=== PATIENT | female | born 1965 | race Asian ===

== ENCOUNTER 2016-06-05 14:03 | Emergency (ER) | payer OTHER ==
[2016-06-05] MEDS ORDERED: ONDANSETRON ODT 4 MG TABLET TL STA (16:40)
[2016-06-05] MEDS ORDERED: DIPHENOX/ATROPINE 2.5/0.025 MG TABLET PO STA (16:40)
[2016-06-05] MEDS ORDERED: ACETAMINOPHEN 325 MG TABLET PO STA (16:40)
[2016-06-05] MEDS ORDERED: ACETAMINOPHEN 325 MG TABLET PO ONE (16:45)
[2016-06-05] MEDS ORDERED: ONDANSETRON ODT 4 MG TABLET ONE (16:46)
[2016-06-05] MEDS ORDERED: DIPHENOX/ATROPINE 2.5/0.025 MG TABLET PO ONE (16:46)
== END 2016-06-05 16:58 | disposition home or self-care (01) ==
DX: R11.2 Nausea with vomiting, unspecified (principal); A09 Infectious gastroenteritis and colitis, unspecified; R10.84 Generalized abdominal pain
CPT/HCPCS: 99282; 99283; A9270; Q0162

== ENCOUNTER 2017-12-18 19:44 | Emergency (ER) | payer OTHER ==
--- NOTE | 2017-12-18 21:39 | ED Physician Documentation ---
PD HPI HEADACHE - Stated complaint Stated Complaint: YAN - Chief complaint Chief Complaint: Neuro - History obtained from History obtained from: Patient - History of Present Illness Timing - onset: How many days ago (5) Timing - duration: Days Timing - details: Gradual onset, Still present, Constant, Waxing and waning Pain level now: 8 Worst headache ever?: No: Worst headache ever? Location: Front, Back, Right, Left, Other (bifrontal and bioccipital) Quality: Throbbing, Aching Associated symptoms: Fever (subjective (did not take temperature at home, but sweats/chills, was hot to touch)) Improved by: Rest, Dark room Worsened by: Light Similar symptoms before: Diagnosis (YAN is similar to previous migraines) Recently seen: Not recently seen - Additional information Additional information: c/o 5 days of YAN, nausea, vomiting c/w her migraine headaches. not responding to her triptan and ondansetron. also has 1-2 days of subjective fever, urinary frequency, and burning dysuria. Review of Systems Constitutional: reports: Fever (subjective), Chills, Sweats Eyes: reports: Photophobia. denies: Loss of vision, Decreased vision Cardiac: reports: Reviewed and negative Respiratory: reports: Reviewed and negative GI: reports: Nausea, Vomiting. denies: Abdominal Pain : reports: Dysuria, Frequency Musculoskeletal: denies: Neck pain Neurologic: reports: Headache. denies: Generalized weakness, Focal weakness, Numbness PD PAST MEDICAL HISTORY - Past Medical History Past Medical History: No Cardiovascular: None Respiratory: None Neuro: None Endocrine/Autoimmune: None GI: None LOGISTICS/SHIPPER: None : None HEENT: None Psych: None Musculoskeletal: None Derm: None - Past Surgical History Past Surgical History: Yes /LOGISTICS/SHIPPER: section - Present Medications Home Medications: Ambulatory Orders Medication Instructions Recorded Confirmed Ondansetron [Zofran Odt] 8 mg PO Q6H PRN #10 tab.rapdis 07/20/13 Ciprofloxacin HCl [Cipro] 500 mg PO BID #14 tablet 12/18/17 Promethazine [Phenergan] 25 mg PO Q6H PRN #10 tab 12/18/17 Zolmitriptan [Zolmitriptan Odt] 2.5 mg PO 12/18/17 oxyCODONE [Roxicodone] 5 mg PO Q6H PRN #10 tablet 12/18/17 - Allergies Allergies/Adverse Reactions: Allergies Allergy/AdvReac Type Severity Reaction Status Date / Time No Known Drug Allergies Allergy Verified 12/18/17 19:57 - Social History Does the pt smoke?: No Smoking Status: Never smoker Does the pt drink ETOH?: No Does the pt have substance abuse?: No - Immunizations Immunizations are current?: Yes - POLST Patient has POLST: No PD ED PE NORMAL - Vitals Vital signs reviewed: Yes - General General: Alert and oriented X 3, No acute distress, Well developed/nourished - HEENT HEENT: PERRL, EOMI - Neck Neck: Supple, no meningeal sign - Cardiac Cardiac: RRR, No murmur - Respiratory Respiratory: No respiratory distress, Clear bilaterally - Abdomen Abdomen: Soft, Non tender - Derm Derm: Normal color, Warm and dry, No rash - Neuro Neuro: Alert and oriented X 3, kennel attendant 2-12 intact, No motor deficit, No sensory deficit, Normal speech Eye Opening: Spontaneous Motor: Obeys Commands Verbal: Oriented GCS Score: 15 Results - Vitals Vitals: Oxygen O2 Source Room air - Labs Labs: Microbiology 12/18/17 21:45 Urine Culture - Preliminary Urine,Clean Catch Escherichia Coli Laboratory Tests 12/18/17 21:45 Urine Color YELLOW Urine Clarity HAZY Urine pH 6.5 Ur Specific [place] <=1.005 Urine Protein TRACE Urine Glucose (UA) NEGATIVE Urine Ketones NEGATIVE Urine Occult Blood SMALL H Urine Nitrite POSITIVE H Urine Bilirubin NEGATIVE Urine Urobilinogen 0.2 (NORMAL) Ur Leukocyte Esterase SMALL H Urine RBC 0-5 Urine WBC 11-25 H Ur Squamous Epith Cells FEW Squamous Urine Bacteria Moderate H Ur Microscopic Review INDICATED Urine Culture Comments INDICATED PD MEDICAL DECISION MAKING - ED course Complexity details: reviewed results, re-evaluated patient, considered differential, d/w patient, d/w family ED course: patient reported good relief of symptoms with phenergan, dilaudid, toradol, IV fluids. UA s/o UTI, given rocephin IV and rx cipro. - Sepsis Event Vital Signs: Oxygen O2 Source Room air Departure - Departure Disposition: 01 Home, Self Care Clinical Impression: Urinary tract infection Qualifiers: Urinary tract infection type: acute cystitis Hematuria presence: with hematuria Qualified Code(s): N30.01 - Acute cystitis with hematuria Migraine Qualifiers: Migraine type: without aura Status migrainosus presence: without status migrainosus Intractability: not intractable Qualified Code(s): G43.009 - Migraine without aura, not intractable, without status migrainosus Condition: Good Instructions: ED Headache Migraine, ED UTI Cystitis Female Follow-Up: DELMY RUBIN [Primary Care Provider] - (3-5 days if symptoms have not resolved) Prescriptions: Ciprofloxacin HCl [Cipro] 500 mg PO BID #14 tablet oxyCODONE [Roxicodone] 5 mg PO Q6H PRN #10 tablet PRN Reason: Headache Promethazine [Phenergan] 25 mg PO Q6H PRN #10 tab PRN Reason: Nausea / Vomiting Discharge Date/Time: 12/19/17 00:00
[2017-12-18] MEDS ORDERED: SODIUM CHLORIDE 0.9% 1,000 ML IV STA (21:46)
[2017-12-18 21:59] LABS: BILIRUBIN,URINE NEGATIVE (NEGATIVE); GLUCOSE, URINE (UA) NEGATIVE (NEGATIVE); KETONES,URINE (UA) NEGATIVE (NEGATIVE); LEUKOCYTE ESTERASE, URINE SMALL (NEGATIVE); NITRITE,URINE POSITIVE (NEGATIVE); OCCULT BLOOD,URINE SMALL (NEGATIVE); PH,URINE 6.5 PH (5.0-7.5); PROTEIN,URINE TRACE mg/dL (NEGATIVE); UROBILINOGEN,URINE 0.2 (NORMAL) E.U./dL (NORMAL)
[2017-12-18 22:00] LABS: CLARITY,URINE HAZY (CLEAR)
[2017-12-18 22:08] LABS: BACTERIA,URINE Moderate /HPF (None Seen); RBC,URINE 0-5 /HPF (0-5); SQUAMOUS EPITHELIAL CELL,UR FEW Squamous (<= Few)
[2017-12-18] MEDS ORDERED: HYDROmorphone 1 MG/ML CARPUJECT IVP STA ×2 (22:10→22:11)
[2017-12-18] MEDS ORDERED: KETOROLAC 60 MG/2 ML VIAL IVP STA (22:10)
[2017-12-18] MEDS ORDERED: PROMETHAZINE INJ 25 MG in SODIUM CHLORIDE 0.9% 50 ML IV STA (22:10)
[2017-12-18] MEDS ORDERED: cefTRIAXone 1 GM in SODIUM CHLORIDE 0.9% MINIBAG 100 ML IV STA (22:12)
[2017-12-19 00:11] VITALS: BP 109/69
== END 2017-12-19 | disposition home or self-care (01) ==
LOC: ED 19:44
DX: G43.009 Migraine without aura, not intractable, without status migrainosus (principal); N30.01 Acute cystitis with hematuria
CPT/HCPCS: 36415; 81001; 87086; 87181; 96361; 96365; 96368; 96375; 99284; J1170; J7040; 81003

== ENCOUNTER 2022-10-31 13:23 | Emergency (ER) | payer OTHER ==
[2022-10-31] MEDS ORDERED: SODIUM CHLORIDE 0.9% 1,000 ML IV STA (14:15)
[2022-10-31] MEDS ORDERED: HYDROmorphone 0.5 MG/0.5 ML SYRINGE IVP STA (14:17)
[2022-10-31] MEDS ORDERED: ONDANSETRON 4 MG/2 ML VIAL IVP STA (14:17)
--- NOTE | 2022-10-31 14:17 | ED Physician Documentation ---
PD HPI HEADACHE - Stated complaint Stated Complaint: HEAD PX - Chief complaint Chief Complaint: Neuro - History obtained from History obtained from: Patient - History of Present Illness Timing - onset: How many weeks ago (2) Timing - onset during: Light activity Timing - duration: Weeks Timing - details: Gradual onset, Still present, Waxing and waning Worst headache ever?: No: Worst headache ever? Location: Global Quality: Throbbing, Aching Associated symptoms: Nausea, Vomiting. No: Fever, Stiff neck, Weakness, Numbness Improved by: No: Rest Worsened by: Light Contributing factors: No: Anticoagulated, Recent illness, Trauma Similar symptoms before: Diagnosis (migraines) Recently seen: Emergency Dept Review of Systems Constitutional: denies: Fever, Chills Nose: denies: Rhinorrhea / runny nose, Congestion Throat: denies: Sore throat Respiratory: denies: Cough Skin: denies: Rash, Lesions Musculoskeletal: denies: Neck pain, Back pain Neurologic: reports: Headache. denies: Focal weakness, Numbness, Near syncope, Altered mental status, Head injury, LOC PD PAST MEDICAL HISTORY - Past Medical History Cardiovascular: None Respiratory: None Neuro: Headaches Endocrine/Autoimmune: None GI: None RESEARCH MANAGEMENT ASSOCIATE: None : None HEENT: None Psych: None Musculoskeletal: None Derm: None - Past Surgical History Past Surgical History: Yes /RESEARCH MANAGEMENT ASSOCIATE: section - Present Medications Home Medications: Ambulatory Orders Medication Instructions Recorded Confirmed Ondansetron [Zofran Odt] 8 mg PO Q6H PRN #10 tab.rapdis 07/20/13 Ciprofloxacin HCl [Cipro] 500 mg PO BID #14 tablet 12/18/17 Promethazine [Phenergan] 25 mg PO Q6H PRN #10 tab 12/18/17 ZOLMitriptan [Zolmitriptan Odt] 2.5 mg PO 12/18/17 oxyCODONE [Roxicodone] 5 mg PO Q6H PRN #10 tablet 12/18/17 HYDROcod/ACETAM 5/325 [[place] 5/325] 1 ea PO Q6H PRN #18 tablet 10/31/22 Ondansetron Odt [Zofran] 4 mg TL Q6H PRN #15 tablet 10/31/22 dexAMETHasone [Decadron] 4 mg PO DAILY #5 tablet 10/31/22 - Allergies Allergies/Adverse Reactions: Allergies Allergy/AdvReac Type Severity Reaction Status Date / Time No Known Drug Allergies Allergy Verified 10/31/22 13:59 - Social History Does the pt smoke?: No Smoking Status: Never smoker Does the pt drink ETOH?: No Does the pt have substance abuse?: No - Immunizations Immunizations are current?: Yes - POLST Patient has POLST: No PD ED PE NORMAL - Vitals Vital signs reviewed: Yes - General General: Alert and oriented X 3, Well developed/nourished - HEENT HEENT: Pharynx benign - Neck Neck: Supple, no meningeal sign, No adenopathy - Cardiac Cardiac: RRR, No murmur - Respiratory Respiratory: Clear bilaterally - Abdomen Abdomen: Soft, Non tender - Derm Derm: Normal color, Warm and dry - Extremities Extremities: Normal ROM s pain, No edema, No calf tenderness / cord - Neuro Neuro: Alert and oriented X 3, No motor deficit, Normal speech Results - Vitals Vitals: Vital Signs - 24 hr 10/31/22 10/31/22 10/31/22 16:30 17:00 17:30 Heart Rate 62 60 55 L Respiratory 12 12 12 Rate Blood Pressure 145/90 H 146/90 H 147/76 H O2 Saturation 99 99 99 10/31/22 18:00 Heart Rate 58 L Respiratory 17 Rate Blood Pressure 155/67 H O2 Saturation 100 Oxygen O2 Source Room air - EKG (time done) 14:56 EKG releavant findings:: EKG personally interpreted by author of this note. Relevant findings are: Rate: Rate (enter#) (45) Rhythm: Sinus bradycardia [place]: Normal Intervals: Normal ME QRS: Normal Ischemia: Normal ST segments. No: ST elevation c/w ischemia, ST depression Compare to prior EKG: Old EKG unavailable - Labs Labs: Laboratory Tests 10/31/22 10/31/22 10/31/22 14:25 14:25 14:25 WBC 7.3 RBC 4.93 Hgb 14.1 Hct 43.0 MCV 87.2 MCH 28.6 MCHC 32.8 RDW 12.0 Plt Count 299 MPV 9.0 Neut # (Auto) 4.1 Lymph # (Auto) 2.8 [place] # (Auto) 0.3 Eos # (Auto) 0.1 Baso # (Auto) 0.0 Absolute Nucleated RBC 0.00 Nucleated RBC % 0.0 ESR 14 Sodium 139 Potassium 3.8 Chloride 102 Carbon Dioxide 27 Anion Gap 10.0 BUN 11 Creatinine 0.6 Estimated GFR (MDRD) 103 Glucose 120 H Calcium 9.6 Magnesium 2.0 Total Bilirubin 0.6 AST 21 ALT 23 Alkaline Phosphatase 95 Total Protein 8.5 H Albumin 4.6 Globulin 3.9 Albumin/Globulin Ratio 1.2 Lipase 31 - Rads (name of study) head CT Relevant Findings:: Prelim report reviewed (no acute process), EMP independent interpretation of test, See rad report PD Medical Decision Making - ED course Complexity details: considered differential (has had prolonged migraine type headache for over 2 weeks, with increase for several days. Has headaches episodcically. ), d/w patient Drug Therapy Requiring Monitoring for Toxicity: IV dilaudid and Zofran for headache. No change in resp status. ED course: has had over 2 weeks of headache waxing and waning, with conssistent the past few days. [place] migraine like in onset to her. Presenting today to ER, her BP is elevated, and her heart rate at times goes bradycardic briefly with return to normal. This got attention of nursing however, reasonably so. Pt placed on heart monitor. The slowing does seem to correlate with times of worse nausea. She improved headache with IV meds of Zofran, toradol and Dilaudid. Her BP improved without specific treatment for it, just treating the pain. The episodes of heart rate slowing diminished though she remains at mild bradycardia without symptoms of dyspnea, lightheaded though. Likely baseline bradycardia. She is not on meds to lead to this. She is feeling much improved regarding headache and states it is now gone. We did do head CT given YAN, leevated BP and effect on HR. The head CT is normal. It may be prudent for her PCP to do Holter type monitor to ensure no notable HR problems. The patient denies recent/any eposides of near synocope , chest pain/duyspnea. Departure - Departure Disposition: 01 Home, Self Care Clinical Impression: Bradycardia Migraine with status migrainosus Qualifiers: Migraine type: unspecified Intractability: intractable Qualified Code(s): G43.911 - Migraine, unspecified, intractable, with status migrainosus Condition: Stable Instructions: ED Headache Migraine Prescriptions: dexAMETHasone [Decadron] 4 mg PO DAILY #5 tablet HYDROcod/ACETAM 5/325 [[place] 5/325] 1 ea PO Q6H PRN #18 tablet PRN Reason: Pain Ondansetron Odt [Zofran] 4 mg TL Q6H PRN #15 tablet PRN Reason: Nausea / Vomiting Comments: Your blood tests and head CT are normal. This does look to have been persistent/status migraine. It is good that your headache is better at this point. I would suggest an anti-inflammatory of dexamethasone daily for 5 more days to try to reduce the chance of recurring or rebound headache. Ondansetron if needed for nausea. Add Tylenol every 4-6 hours if needed for pain or hydrocodone if needed for worse pain. I sent your prescriptions to [facility] pharmacy. While you are here, your heart rate did slow down intermittently. This may have been in response to pain. Follow-up with your primary care if you notice episodes where you get lightheaded periodically. Following up with your primary care anyway as they may want to have you wear a heart monitor to record your heart rhythm and rate over several days to a week to ensure this is not a consistent problem or finding. I am prescribing a short course of narcotic pain medication for you. These are potentially dangerous and addictive medications that should be used carefully. These medications may constipate you. Take an [id number] stool softener such as docusate twice daily with plenty of water while taking these medications. If you go 24 hours without a bowel movement, take [id number] MiraLAX, per package instructions. Do not drink or drive while taking these medications. If you received narcotic or sedating medications while in the emergency department do not drive for 24 hours. Store this medication in a safe, secure place and out of reach of children. It is a violation of federal law to give or sell this medication to another person or to use in a manner other than prescribed. The ED will not refill narcotic prescriptions, including prescriptions lost or stolen. You can dispose of unwanted medications at the [facility]'s office or at several pharmacies such as [facility]. Discharge Date/Time: 10/31/22 18:18
[2022-10-31 14:32] LABS: BASOPHILS % (AUTO) 0.4 %; EOSINOPHILS # (AUTO) 0.1 10^3/uL (0.0-0.7); EOSINOPHILS % (AUTO) 0.8 %; HGB - HEMOGLOBIN 14.1 g/dL (12.0-16.0); LYMPHOCYTES # (AUTO) 2.8 10^3/uL (1.5-3.5); LYMPHOCYTES % (AUTO) 38.4 %; MEAN CORPUSCULAR HEMOGLOBIN 28.6 pg (27.0-31.0); MEAN CORPUSCULAR HGB CONC 32.8 g/dL (32.0-36.0); MEAN CORPUSCULAR VOLUME 87.2 fL (81.0-99.0); MONOCYTES # (AUTO) 0.3 10^3/uL (0.0-1.0); MONOCYTES % (AUTO) 4.5 %; NEUTROPHILS # (AUTO) 4.1 10^3/uL (1.5-6.6); NEUTROPHILS % (AUTO) 55.6 %; PLT - PLATELET COUNT 299 10^3/uL (130-450); RED BLOOD COUNT 4.93 10^6/uL (4.20-5.40); WHITE BLOOD COUNT 7.3 x10^3/uL (4.8-10.8)
--- NOTE | 2022-10-31 14:45 | CT Report ---
PROCEDURE: HEAD WO INDICATIONS: headache for 2 weeks TECHNIQUE: Noncontrast 4.5 mm thick angled axial sections acquired from the foramen magnum to the vertex. For r adiation dose reduction, the following was used: automated exposure control, adjustment of mA and/or kV according to patient size. COMPARISON: None. FINDINGS: Image quality: Excellent. CSF spaces: Basal cisterns are patent. No extra-axial fluid collections. Ventricles are normal in size and shape. Brain: No midline shift. No intracranial masses or hemorrhage. Bailey-white matter interface is norm al. Skull and face: Calvarium and visualized facial bones are intact, without suspicious lesions. Sinuses: Visualized sinuses and mastoids are clear. IMPRESSION: No acute intracranial pathology Reviewed by: Yusuf Zamora on 10/31/2022 2:44 PM PDT Approved by: Yusuf Zamora on 10/31/2022 2:44 PM PDT Station ID: [id number]
[2022-10-31 14:47] LABS: ALBUMIN 4.6 g/dL (3.2-5.5); ALBUMIN/GLOBULIN RATIO 1.2 (1.0-2.2); BILIRUBIN,TOTAL 0.6 mg/dL (0.2-1.0); CALCIUM 9.6 mg/dL (8.5-10.3); CREATININE 0.6 mg/dL (0.4-1.0); POTASSIUM 3.8 mmol/L (3.5-5.0); TOTAL PROTEIN 8.5 g/dL (6.7-8.2)
[2022-10-31] MEDS ORDERED: KETOROLAC 15 MG/ML VIAL IVP STA (14:55)
[2022-10-31] MEDS ORDERED: DEXAMETHASONE 10 MG/ML VIAL IVP STA (15:46)
[2022-10-31 18:04] VITALS: BP 155/67
== END 2022-10-31 18:18 | disposition home or self-care (01) ==
LOC: ED 13:23
DX: G43.911 Migraine, unspecified, intractable, with status migrainosus (principal); R00.1 Bradycardia, unspecified
CPT/HCPCS: 36415; 70450; 80053; 83690; 83735; 85025; 85651; 93005; 96374; 96375; 99284; J1170